=== PATIENT | female | born 1975 | race Caucasian/White ===

== ENCOUNTER 2021-05-10 09:55 | Outpatient (CLI) | payer BC, SELFPAY ==
[2021-05-10 13:50] LABS: SARS-CoV-2 RNA PCR Negative (Negative)
== END 2021-05-10 09:56 | disposition home or self-care (01) ==
LOC: CHSLAB 10:04
DX: Z00.00 Encounter for general adult medical examination without abnormal findings (principal); Z20.822 Contact with and (suspected) exposure to COVID-19
CPT/HCPCS: C9803; U0003; U0005

== ENCOUNTER 2021-06-09 07:57 | Outpatient (CLI) | payer BC, SELFPAY ==
[2021-06-09 10:04] LABS: SARS-CoV-2 RNA PCR Negative (Negative)
== END 2021-06-09 07:58 | disposition home or self-care (01) ==
LOC: CHSLAB 08:13
DX: Z20.822 Contact with and (suspected) exposure to COVID-19 (principal)
CPT/HCPCS: C9803; U0003; U0005

== ENCOUNTER 2021-09-08 09:13 | Outpatient (CLI) | payer BC, SELFPAY ==
[2021-09-08 14:04] LABS: SARS-CoV-2 RNA PCR Negative (Negative)
== END 2021-09-08 09:14 | disposition home or self-care (01) ==
LOC: CHSLAB 09:20
DX: Z00.00 Encounter for general adult medical examination without abnormal findings (principal); Z20.822 Contact with and (suspected) exposure to COVID-19
CPT/HCPCS: C9803; U0003; U0005

== ENCOUNTER 2021-10-27 09:54 | Outpatient (CLI) | payer BC, SELFPAY ==
[2021-10-27 13:32] LABS: SARS-CoV-2 RNA PCR Negative (Negative)
== END 2021-10-27 09:55 | disposition home or self-care (01) ==
LOC: CHSLAB 09:59
DX: Z91.89 Other specified personal risk factors, not elsewhere classified (principal); Z20.822 Contact with and (suspected) exposure to COVID-19
CPT/HCPCS: C9803; U0003; U0005